=== PATIENT | male | born 1970 ===

== ENCOUNTER 2020-07-13 17:36 | Emergency (ER) | payer OTHER ==
[~2020-07-13] VITALS: Ht 177.8 cm; Wt 84.4 kg
[2020-07-14] MEDS ORDERED: ZINC GLUCONATE100 MG PO (11:31)
[2020-07-14] MEDS ORDERED: MELATONIN10 M2 PO (11:31)
[2020-07-14] MEDS ORDERED: KAYEXALATE15 GM/60 M PO (11:31)
[2020-07-14] MEDS ORDERED: ECOTRIN81 MG PO (11:31)
[2020-07-14] MEDS ORDERED: VITAMIN D3125 MC1 PO (11:31)
[2020-07-14] MEDS ORDERED: VITAMIN C500 M6 PO (11:31)
[2020-07-14] MEDS ORDERED: INTEGRA PLUS C1 EACH PO (11:32)
== END 2020-07-14 12:25 | disposition home or self-care (01) ==
LOC: ER 17:36
DX: B34.9 Viral infection, unspecified (principal); R09.02 Hypoxemia; R06.02 Shortness of breath; I12.9 Hypertensive chronic kidney disease with stage 1 through stage 4 chronic kidney disease, or unspecified chronic kidney disease; E11.22 Type 2 diabetes mellitus with diabetic chronic kidney disease; N18.4 Chronic kidney disease, stage 4 (severe); E87.5 Hyperkalemia; D64.89 Other specified anemias; Z79.84 Long term (current) use of oral hypoglycemic drugs; Z03.818 Encounter for observation for suspected exposure to other biological agents ruled out